=== PATIENT | male | born 1990 | race Caucasian/White ===

== ENCOUNTER 2018-11-09 23:55 | Emergency (ER) | payer OTHER ==
[2018-11-10] MEDS ORDERED: Ibuprofen TAB* 400 MG PO ONE (00:11)
--- NOTE | 2018-11-10 01:07 | ED ---
Lower Extremity - HPI Summary HPI Summary: Patient admits to 10-12 drinks over the course of the day starting at noon complains of right ankle pain after mechanical fall. Patient denies any other pain, injury, symptoms. Patient has ambulated since fall with pain. - History of Current Complaint Chief Complaint: EDExtremityLower Stated Complaint: ETOH, RIGHT ANKLE INJURY Time Seen by Provider: 11/10/18 00:06 Hx Obtained From: Patient Mechanism Of Injury: Fall From A Standing Position Onset of Pain: Immediate Onset/Duration: Hours Severity Initially: Moderate Severity Currently: Moderate Pain Intensity: 4 Pain Scale Used: 0-10 Numeric Timing: Constant Location: Is Discrete @ Character Of Pain: Aching, Throbbing Associated Signs And Symptoms: Positive: Swelling Aggravating Factor(s): Ambulation, Movement, Weight Bearing Alleviating Factor(s): Rest Able to Bear Weight: Yes - Allergies/Home Medications Allergies/Adverse Reactions: Allergies Allergy/AdvReac Type Severity Reaction Status Date / Time No Known Allergies Allergy Verified 11/10/18 00:04 PMH/Surg Hx/FS Hx/Imm Hx Endocrine/Hematology History: Denies: Hx Anticoagulant Therapy Cardiovascular History: Denies: Hx Cardiac Arrest History: Denies: Hx Dialysis Neurological History: Denies: Hx CVA Psychiatric History: Denies: Hx Autism Infectious Disease History: No Infectious Disease History: Denies: Traveled Outside the [place] in Last 30 Days - Family History Known Family History: Positive: Non-Contributory - Social History Occupation: Student Alcohol Use: Occasionally Substance Use Type: Reports: None Smoking Status (MU): Never Smoked Tobacco Review of Systems Constitutional: Negative Eyes: Negative ENT: Negative Cardiovascular: Negative Respiratory: Negative Gastrointestinal: Negative Genitourinary: Negative Positive: Arthralgia Skin: Negative Neurological: Negative Psychological: Normal All Other Systems Reviewed And Are Negative: Yes Physical Exam - Summary Physical Exam Summary: Positive swelling to right ankle. No erythema, ecchymosis, deformity, extra warmth noted. PMS intact distally. No evidence of trauma to head, mouth, face, neck, back, chest, abdomen noted. Patient moves bilateral upper extremities and left lower extremity freely without any indication of pain. Patient is coherent and appropriate in response and language. Clinically sober. Triage Information Reviewed: Yes Vital Signs On Initial Exam: Initial Vitals Temp Pulse Resp BP Pulse Ox 97.4 F 119 18 144/80 98 11/10/18 00:03 11/10/18 00:03 11/10/18 00:03 11/10/18 00:03 11/10/18 00:03 Vital Signs Reviewed: Yes Appearance: Positive: Well-Appearing Skin: Positive: Warm Head/Face: Positive: Normal Head/Face Inspection Eyes: Positive: Normal Neck: Positive: Supple Respiratory/Lung Sounds: Positive: Clear to Auscultation Cardiovascular: Positive: Normal Abdomen Description: Positive: Nontender Musculoskeletal: Positive: Normal Neurological: Positive: Normal Psychiatric: Positive: Normal AVPU Assessment: Alert - Rashad Coma Scale Best Eye Response: 4 - Spontaneous Best Motor Response: 6 - Obeys Commands Best Verbal Response: 5 - Oriented Coma Scale Total: 15 Diagnostics - Vital Signs Vital Signs Temp Pulse Resp BP Pulse Ox 11/10/18 00:03 97.4 F 119 18 144/80 98 - Laboratory Lab Statement: Any lab studies that have been ordered have been reviewed, and results considered in the medical decision making process. Lower Extremity Course/Dx - Course Course Of Treatment: Patient admits to 10-12 drinks over the course of the day starting at noon complains of right ankle pain after mechanical fall. Patient denies any other pain, injury, symptoms. Patient has ambulated since fall with pain. Physical exam:Positive swelling to right ankle. No erythema, ecchymosis , deformity, extra warmth noted. PMS intact distally. No evidence of trauma to head, mouth, face, neck, back, chest, abdomen noted. Patient moves bilateral upper extremities and left lower extremity freely without any indication of pain. Patient is coherent and appropriate in response and language. Clinically sober. Vital signs within normal limits. X-ray positive for distal fibular fracture. Posterior walking and stirrup splint placed. Crutches. Follow-up with orthopedics. - Diagnoses Provider Diagnoses: Fracture of distal end of fibula Discharge - Sign-Out/Discharge Documenting (check all that apply): Patient Departure - Discharge Plan Condition: Stable Disposition: HOME Prescriptions: HYDROcodone/ACETAMIN 5-325 MG* [Centre 5-325 TAB*] 1 tab PO Q6H PRN 2 Days #8 tab MDD 3-4 tabs PRN Reason: Pain Patient Education Materials: Ankle Fracture (ED) Referrals: Burak Scott MD [Medical Doctor] - Additional Instructions: No weightbearing on right foot. Use crutches to ambulate. Follow-up with orthopedics Dr. Scott on Monday to arrange appointment for further evaluation. Return to the ED for any new or worsening symptoms. - Billing Disposition and Condition Condition: STABLE Disposition: Home
[2018-11-10 01:21] VITALS: BP 150/96
--- NOTE | 2018-11-10 18:51 | PN ---
Progress Note - Progress Note Date of Service: 11/10/18 Note: Final radiology read of x-ray indicates bimalleolar fracture with mild widening of the mortise. Original nighttime provider read was positive for fracture of the distal fibula. Patient was already treated for fracture of the distal fibula with a posterior walking with stirrup splint, crutches and advised to be nonweightbearing on right lower extremity. Also told to follow-up with orthopedics and provided with related info to do so. No further communication with patient is necessary as appropriate treatment has already been applied and appropriate follow-up indicated.
== END 2018-11-10 01:18 | disposition home or self-care (01) ==
LOC: ED 23:55
DX: S82.844A Nondisplaced bimalleolar fracture of right lower leg, initial encounter for closed fracture (principal); W19.XXXA Unspecified fall, initial encounter; Y92.9 Unspecified place or not applicable
CPT/HCPCS: 99282; A9270-GY

== ENCOUNTER 2019-08-15 22:12 | Emergency (ER) | payer OTHER ==
[2019-08-15] MEDS ORDERED: Ibuprofen TAB* 600 MG PO ONE (23:40)
[2019-08-15] MEDS ORDERED: Ondansetron ODT TAB* 4 MG PO ONE (23:40)
--- NOTE | 2019-08-15 23:47 | ED ---
Headache - HPI Summary HPI Summary: The pt is a 28 yr old male presenting to [facility] c/o headache, nausea, and vomiting beginning 0800 this morning. He states that he woke up in the morning with a headache described as a pressure that radiates into the back of his neck and upper shoulder blades. He rates his current pain severity a 5/10. No aggravating or alleviating factors noted. He also reports pain outside his throat, feeling lightheaded, and abd pain but denies any diarrhea, constipation , SOB, coughing, hematuria, or dysuria. Allergies noted. Medications reviewed. - History Of Current Complaint Chief Complaint: EDHeadache Stated Complaint: SORE THROAT, HEADACHE,NAUSEA,VOMITING PER PT Time Seen by Provider: 08/15/19 23:31 Hx Obtained From: Patient Onset/Duration: Sudden Onset, Started hours ago, Still Present Initially Headache Was: Initial Pain Scale(0-10)= - 5, Moderate Currently Pain Is: Current Pain Scale(0-10)= - 5, Moderate Timing: Constant Character: Pressure Location of Headache: Diffuse Radiates to: back of neck and shoulder blades Aggravating Factor: Nothing Allevating Factors: Nothing Associated Signs And Symptoms: Negative - diarrhea, constipation, SOB, coughing , hematuria, or dysuria., Nausea, Vomiting, Other (Noted In Comments) - sore throat, lightheadedness, and abd pain - Allergies/Home Medications Allergies/Adverse Reactions: Allergies Allergy/AdvReac Type Severity Reaction Status Date / Time No Known Allergies Allergy Verified 11/10/18 00:04 PMH/Surg Hx/FS Hx/Imm Hx Endocrine/Hematology History: Denies: Hx Anticoagulant Therapy Cardiovascular History: Denies: Hx Cardiac Arrest History: Denies: Hx Dialysis Neurological History: Denies: Hx CVA Psychiatric History: Denies: Hx Autism - Surgical History Surgical History: None Surgery Procedure, Year, and Place: none Infectious Disease History: No Infectious Disease History: Denies: Traveled Outside the [place] in Last 30 Days - Family History Known Family History: Negative: Renal Disease - Social History Alcohol Use: Occasionally Substance Use Type: Reports: None Smoking Status (MU): Never Smoked Tobacco Review of Systems Positive: Sore Throat Negative: Shortness Of Breath, Cough Gastrointestinal: Negative - constipation Positive: Abdominal Pain, Vomiting, Nausea. Negative: Diarrhea Negative: dysuria, hematuria Neurological: Other - pos - lightheadedness Positive: Headache All Other Systems Reviewed And Are Negative: Yes Physical Exam - Summary Physical Exam Summary: Constitutional: Well-developed, Well-nourished, Alert. (-) Distressed Skin: Warm, Dry HENT: Normocephalic; Atraumatic, no maxillary or frontal sinus tenderness, no lymph adenopathy or cervical adenopathy Eyes: Conjunctiva normal Neck: Musculoskeletal ROM normal neck. (-) JVD, (-) Stridor, (-) Tracheal deviation Cardio: Rhythm regular, rate normal, Heart sounds normal; Intact distal pulses; The pedal pulses are 2+ and symmetric. Radial pulses are 2+ and symmetric. (-) Murmur Pulmonary/Chest wall: Effort normal. (-) Respiratory distress, (-) Wheezes, (-) Rales Abd: Soft, (-) tenderness, (-) Distension, (-) Guarding, (-) Rebound Musculoskeletal: (-) Edema Lymph: (-) Cervical adenopathy Neuro: Alert, Oriented x3 Psych: Mood and affect Normal Triage Information Reviewed: Yes Vital Signs On Initial Exam: Initial Vitals Temp Pulse Resp BP Pulse Ox 98.9 F 100 18 158/102 97 08/15/19 22:15 08/15/19 22:15 08/15/19 22:15 08/15/19 22:15 08/15/19 22:15 Vital Signs Reviewed: Yes Diagnostics - Vital Signs Vital Signs Temp Pulse Resp BP Pulse Ox 08/15/19 22:15 98.9 F 100 18 158/102 97 - Laboratory Lab Statement: Any lab studies that have been ordered have been reviewed, and results considered in the medical decision making process. Headache Course/Dx - Course Course Of Treatment: Patient is here symptoms consistent with a viral syndrome. Patient is overall well-appearing with a normal exam. Patient clinically does not have meningitis. Patient had no abdominal tenderness on exam. Patient was given Zofran and ibuprofen here. Patient was discharged with a prescription for zofran. - Diagnoses Provider Diagnoses: Viral syndrome, Headache, Vomiting Discharge ED - Sign-Out/Discharge Documenting (check all that apply): Patient Departure - discharge Patient Received Moderate/Deep Sedation with Procedure: No - Discharge Plan Condition: Critical Disposition: HOME Prescriptions: Ondansetron TAB* [Zofran 4 MG Tab*] 4 mg PO Q8HR PRN #12 tab PRN Reason: Vomiting Patient Education Materials: Viral Syndrome (ED) Referrals: [facility] [Outside] - 3 Days Additional Instructions: Stay hydrated and manage symptoms with ibuprofen. Please return to the ED for high fever or severe abdominal pain. PLEASE RETURN TO EMERGENCY DEPARTMENT FOR ANY NEW OR WORSENING SYMPTOMS. Please follow up with your primary care physician. Please make all follow-ups in 1-3 days unless I advise you otherwise. - Billing Disposition and Condition Condition: CRITICAL Disposition: Home - Attestation Statements Document Initiated by Aisha: Yes Documenting Scribe: Pan Glover Provider For Whom Sydibe is Documenting (Include Credential): Evan Daily MD Scribe Attestation: I, Pan Glover, scribed for Evan Daily MD on 08/16/19 at 0010. Scribe Documentation Reviewed: Yes Provider Attestation: The documentation as recorded by the Pan ramos accurately reflects the service I personally performed and the decisions made by me, Evan Daily MD Status of Scribe Document: Viewed
[2019-08-16 00:15] VITALS: BP 0/0
== END 2019-08-16 00:14 | disposition home or self-care (01) ==
LOC: ED 22:12
DX: B34.9 Viral infection, unspecified (principal); R51 Headache; R11.10 Vomiting, unspecified
CPT/HCPCS: 99282; A9270-GY